=== PATIENT | male | born 1950 | race Caucasian/White ===

== ENCOUNTER 2022-04-10 14:43 | Inpatient (IN) | payer OTHER ==
[~2022-04-10] VITALS: Ht 175.3 cm; Wt 66.0 kg
[~2022-04-10 14:43] MED LIST: ACET-3207 PO; ALBU8HFA IH; AUD NEB; BENZ-70 PO; BISA10SU11 PR; DOCU-385 PO; GUAIF600 PO; HEPA500018 SQ; HYDR-4723 PO; IPRA3AMP23 NEB; IPRA4AER IH; MAGN-169 PO; PRED-554 PO
[2022-04-10] MEDS ORDERED: ALBUTEROL SULFATE 5 MG/ML 20 ML NEB SOLN [BULK] NEB ONE (14:45)
[2022-04-10] MEDS ORDERED: ACET-2247 PO (14:54)
[2022-04-10] MEDS ORDERED: MethylPREDNISolone SOD SUCC 125 MG/2 ML VIAL IVP ONE (15:00)
[2022-04-10] MEDS ORDERED: IPRATROPIUM BROMIDE 0.5 MG/2.5 ML NEB SOLUTION NEB ONE (15:00)
[2022-04-10] MEDS ORDERED: MAGNESIUM SULFATE 2 GM in DEXTROSE 5%-WATER 100 ML IV ONE (15:00)
[2022-04-10] MEDS ORDERED: 0.9% SODIUM CHLORIDE 15 ML NEB SOLUTION NEB ONE (15:03)
[2022-04-10 15:05] LABS: COVID AG,FIA SOURCE NASOPHARYNGEAL
[2022-04-10 15:06] LABS: BASOPHILS % (AUTO) 0.3 % (0.0-2.0); EOSINOPHILS % (AUTO) 3.5 % (1.0-6.0); HEMATOCRIT 45.9 % (41-53); HEMOGLOBIN 15.3 g/dL (13.5-17.5); LYMPHOCYTES # (AUTO) 2.2 K/uL (1.0-4.8); MEAN CORPUSCULAR HEMOGLOBIN 31.3 pg (26.0-34.0); MEAN CORPUSCULAR HGB CONC 33.3 G/dL (31.0-37.0); MEAN CORPUSCULAR VOLUME 94 fL (80-100); MONOCYTES # (AUTO) 1.1 K/uL (0.1-1.0); NEUTROPHILS # (AUTO) 8.6 K/uL (1.8-7.7); NEUTROPHILS % (AUTO) 69.2 % (40.0-70.0); PLATELET COUNT (AUTO) 193 K/uL (150-450); RED BLOOD CELL COUNT(AUTO) 4.89 MIL/uL (4.50-5.90); RED CELL DISTRIBUTION WIDTH 15.5 % (11.5-14.5)
[2022-04-10] MEDS ORDERED: SODIUM CHLORIDE 0.9% 1,000 ML IV ONE ×2 (15:15→17:15)
[2022-04-10] MEDS ORDERED: PIPERACILLIN/TAZO 3.375 GM/D5W 50 ML IV ONE (15:15)
[2022-04-10] MEDS ORDERED: ACETAMINOPHEN 1000 MG/ISO-OSM 100 ML IV ONE (15:15)
[2022-04-10] MEDS ORDERED: AZITHROMYCIN 500 MG/NS 250 ML IV ONE (15:15)
[2022-04-10] MEDS ORDERED: 0.9% SODIUM CHLORIDE 10 ML SYRINGE IVP PRN (15:15)
[2022-04-10] MEDS ORDERED: VANCOMYCIN HCL 1.25 GM in DEXTROSE 5%-WATER 250 ML IV ONE (15:15)
[2022-04-10 15:21] LABS: INR 1.2 (0.9-1.1); PROTHROMBIN TIME 12.2 SEC (9.4-11.6)
[2022-04-10 15:21] LABS: GLUCOSE,POINT OF CARE 105 MG/DL (70-110)
[2022-04-10 15:22] LABS: ANION GAP 10 mmol/L (8-16); CALCIUM, TOTAL 9.5 mg/dL (8.8-10.5); CARBON DIOXIDE 30 mmol/L (22-29); CHLORIDE 103 mmol/L (98-107); CREATININE 0.72 mg/dL (0.60-1.30); GLOMERULAR FILTR. RATE CALC > 60 mL/min (>60); GLUCOSE,RANDOM 112 mg/dL (70-110); POTASSIUM 3.9 mmol/L (3.5-5.1); SODIUM SERUM 143 mmol/L (136-145); UREA NITROGEN, BLOOD 11 mg/dL (7-18)
[2022-04-10 15:25] LABS: B-TYPE NATRIURETIC PEPTIDE 94 pg/mL (0-100)
[2022-04-10 15:49] LABS: INFLUENZA TYPE A NEGATIVE FOR TYPE A (NEGATIVE); INFLUENZA TYPE B NEGATIVE FOR TYPE B (NEGATIVE)
[2022-04-10 15:49] LABS: ALANINE AMINOTRANSFERASE 67 U/L (12-78); ALBUMIN 4.6 g/dL (3.4-5.0); ALKALINE PHOSPHATASE 135 U/L (46-116); ASPARTATE AMINOTRANSFERASE 55 U/L (15-37); BILIRUBIN,TOTAL 0.9 mg/dL (0.1-1.0); CREATINE KINASE, TOTAL ONLY 107 U/L (39-308); TOTAL PROTEIN, SERUM 8.5 g/dL (6.4-8.2)
[2022-04-10] MEDS ORDERED: SODIUM CHLORIDE 0.9% 800 ML IV ONE (16:00)
[2022-04-10 17:02] LABS: ABG BASE EXCESS -2.6 mmol/L (-2.0-3.0); ABG CARBOXYHEMOGLOBIN 2.4 % (0.0-1.5); ABG HCO3 22.2 mmol/L (22.0-26.0); ABG METHEMOGLOBIN 0.1 % (0.0-1.5); ABG OXYGEN CONTENT 18.2 mL/dL (15.0-23.0); ABG OXYGEN SATURATION 97.2 % (95.0-98.0); ABG OXYHEMOGLOBIN 94.8 % (94.0-100.0); ABG PCO2 46 mmHg (35-45); ABG PH 7.326 (7.35-7.450); ABG TOTAL HEMOGLOBIN 13.6 G/dL (12.0-18.0); PO2, ARTERIAL BG 99.1 mmHg (75.0-83.0); SITE, BLOOD GAS LFT BRACHIAL; SOURCE, BLOOD GAS ARTERIAL; TEMPERATURE, FAHRENHEIT, BG 98.5 FAHREN (96.0-98.6)
[2022-04-10 17:03] LABS: ABG A-A DIFF O2 97.3 mmHg (10-20.0); INSPIRATORY TIME, BG 0.9 SEC; O2 DEVICE,BLOOD GAS BIPAP (ROOM AIR); SPONTANEOUS VT, BG 508 ml
[2022-04-10] MEDS ORDERED: ACETAMINOPHEN 325 MG TABLET PO PRN (17:15)
[2022-04-10] MEDS ORDERED: BISACODYL 10 MG RECTAL RECTAL SUPPOSITORY PR PRN (17:15)
[2022-04-10 18:53] VITALS: BP 107/64
[2022-04-10] MEDS: PANTOPRAZOLE SODIUM 40 MG/VIAL IVP SCH (20:30)
[2022-04-10] MEDS: MethylPREDNISolone SOD SUCC 125 MG/2 ML VIAL IVP SCH ×2 (20:30→23:35)
[2022-04-10] MEDS: PIPERACILLIN/TAZO 3.375 GM/D5W 50 ML IV SCH (21:59)
[2022-04-10] MEDS: HEPARIN SODIUM,PORCINE 5,000 UNITS/ML VIAL SQ SCH (23:35)
[2022-04-10 23:53] VITALS: BP 122/68
[2022-04-11] MEDS: PIPERACILLIN/TAZO 3.375 GM/D5W 50 ML IV SCH ×4 (03:47→23:11)
[2022-04-11 04:35] VITALS: BP 105/59
[2022-04-11] MEDS: MethylPREDNISolone SOD SUCC 125 MG/2 ML VIAL IVP SCH ×4 (05:56→23:11)
[2022-04-11] MEDS: VANCOMYCIN 1GM/WATER(PEG/NADA) 200 ML IV SCH ×2 (05:57→18:42)
[2022-04-11 07:15] VITALS: BP 112/66
[2022-04-11 07:16] LABS: APPEARANCE,URINE CLEAR (CLEAR); BILIRUBIN,URINE NEGATIVE (NEGATIVE); GLUCOSE, URINE (UA) 300-500 mg/dL (NEGATIVE); KETONES,URINE NEGATIVE (NEGATIVE); LEUKOCYTE ESTERASE ,URINE NEGATIVE (NEGATIVE); NITRATE,URINE NEGATIVE (NEGATIVE); OCCULT BLOOD,URINE NEGATIVE (NEGATIVE); PH,URINE 5.5 (5.0-8.0); PROTEIN,URINE NEGATIVE (NEGATIVE); SPECIFIC GRAVITIY, URINE 1.015 (1.003-1.030); UROBILINOGEN,URINE <=1.0 mg/dL (<=1.0)
[2022-04-11 07:49] LABS: BACTERIA,URINE None Seen /HPF (None Seen); RBC,URINE None Seen /HPF (0-2); SQUAMOUS EPITHELIAL CELL,UR None Seen /LPF (None Seen); WBC,URINE None Seen /HPF (0-5)
[2022-04-11 07:49] LABS: ANION GAP 11 mmol/L (8-16); CALCIUM, TOTAL 8.8 mg/dL (8.8-10.5); CARBON DIOXIDE 26 mmol/L (22-29); CHLORIDE 106 mmol/L (98-107); CREATININE 0.77 mg/dL (0.60-1.30); GLUCOSE,RANDOM 153 mg/dL (70-110); POTASSIUM 4.2 mmol/L (3.5-5.1); SODIUM SERUM 143 mmol/L (136-145); UREA NITROGEN, BLOOD 14 mg/dL (7-18)
[2022-04-11 08:00] LABS: GLOMERULAR FILTR. RATE CALC > 60 mL/min (>60)
[2022-04-11] MEDS: PANTOPRAZOLE SODIUM 40 MG/VIAL IVP SCH (08:39)
[2022-04-11] MEDS: HEPARIN SODIUM,PORCINE 5,000 UNITS/ML VIAL SQ SCH ×3 (08:39→23:10)
[2022-04-11 10:56] VITALS: BP 112/67
[2022-04-11] MEDS: ALBUTEROL SULFATE 2.5 MG/0.5 ML NEB SOLUTION NEB PRN ×2 (13:23→20:43)
[2022-04-11] MEDS: IPRATROPIUM BROMIDE 0.5 MG/2.5 ML NEB SOLUTION NEB PRN ×2 (13:23→20:43)
[2022-04-11 16:26] VITALS: BP 121/71
[2022-04-11 20:33] VITALS: BP 116/71
[2022-04-12 00:18] VITALS: BP 133/85
[2022-04-12] MEDS ORDERED: SODIUM CHLORIDE 0.9% 500 ML IV ONE (05:26)
[2022-04-12 05:46] VITALS: BP 125/62
[2022-04-12] MEDS: MethylPREDNISolone SOD SUCC 125 MG/2 ML VIAL IVP SCH (05:48)
[2022-04-12] MEDS: PIPERACILLIN/TAZO 3.375 GM/D5W 50 ML IV SCH ×2 (05:49→10:13)
[2022-04-12] MEDS: VANCOMYCIN 1GM/WATER(PEG/NADA) 200 ML IV SCH (06:12)
[2022-04-12 07:20] LABS: ANION GAP 9 mmol/L (8-16); CARBON DIOXIDE 28 mmol/L (22-29); CHLORIDE 103 mmol/L (98-107); CREATININE 0.73 mg/dL (0.60-1.30); GLUCOSE,RANDOM 153 mg/dL (70-110); PHOSPHORUS 2.8 mg/dL (2.5-4.9); POTASSIUM 4.3 mmol/L (3.5-5.1); SODIUM SERUM 140 mmol/L (136-145); UREA NITROGEN, BLOOD 21 mg/dL (7-18)
[2022-04-12 07:21] VITALS: BP 130/66
[2022-04-12 07:57] LABS: GLOMERULAR FILTR. RATE CALC > 60 mL/min (>60)
[2022-04-12] MEDS: HEPARIN SODIUM,PORCINE 5,000 UNITS/ML VIAL SQ SCH ×2 (07:59→15:28)
[2022-04-12] MEDS: PANTOPRAZOLE SODIUM 40 MG/VIAL IVP SCH (07:59)
[2022-04-12] MEDS ORDERED: 0.9% SODIUM CHLORIDE 5 ML NEB SOLUTION NEB ONE (08:18)
[2022-04-12] MEDS: ALBUTEROL SULFATE 2.5 MG/0.5 ML NEB SOLUTION NEB PRN ×2 (08:23→13:27)
[2022-04-12] MEDS: IPRATROPIUM BROMIDE 0.5 MG/2.5 ML NEB SOLUTION NEB PRN ×2 (08:23→13:27)
[2022-04-12] MEDS ORDERED: FOLIC ACID 1 MG TABLET PO SCH (09:00)
[2022-04-12] MEDS ORDERED: THIAMINE 100 MG TABLET PO SCH (09:00)
[2022-04-12 11:39] VITALS: BP 106/55
[2022-04-12] MEDS ORDERED: AUD NEB (11:56)
[2022-04-12] MEDS ORDERED: PRED-554 PO (11:57)
[2022-04-12] MEDS ORDERED: ALBU8HFA IH (11:58)
[2022-04-12] MEDS ORDERED: LEVO-72 PO (11:58)
[2022-04-12 12:00] LABS: BASOPHILS % (AUTO) 0.1 % (0.0-2.0); EOSINOPHILS % (AUTO) 0 % (1.0-6.0); HEMATOCRIT 38.7 % (41-53); LYMPHOCYTES # (AUTO) 0.5 K/uL (1.0-4.8); LYMPHOCYTES % (AUTO) 3.7 % (22.0-44.0); MEAN CORPUSCULAR HEMOGLOBIN 31.4 pg (26.0-34.0); MEAN CORPUSCULAR HGB CONC 33.6 G/dL (31.0-37.0); MEAN CORPUSCULAR VOLUME 93 fL (80-100); MONOCYTES # (AUTO) 0.4 K/uL (0.1-1.0); MONOCYTES % (AUTO) 2.7 % (2.0-9.0); NEUTROPHILS # (AUTO) 13.3 K/uL (1.8-7.7); NEUTROPHILS % (AUTO) 93.5 % (40.0-70.0); PLATELET COUNT (AUTO) 140 K/uL (150-450); RED BLOOD CELL COUNT(AUTO) 4.15 MIL/uL (4.50-5.90)
[2022-04-12] MEDS ORDERED: PredniSONE 10 MG TABLET PO SCH (12:15)
[2022-04-12] MEDS ORDERED: MONT-35 PO (12:27)
[2022-04-12] MEDS ORDERED: ALBUTEROL SULFATE HFA 90 MCG/PUFF 8 GM INHALER IH ONE (13:45)
[2022-04-12 14:49] VITALS: BP 119/62
[2022-04-13] MEDS ORDERED: LEVOFLOXACIN 500 MG TABLET PO SCH (09:00)
== END 2022-04-12 17:35 | disposition home or self-care (01) | DRG 871 ==
LOC: EMS 14:48 → 5N 17:15
PROVIDERS: ADMIT Internal Medicine; ATTEND Internal Medicine
DX: A41.9 Sepsis, unspecified organism (principal); E43 Unspecified severe protein-calorie malnutrition; G93.41 Metabolic encephalopathy; J18.9 Pneumonia, unspecified organism; J96.21 Acute and chronic respiratory failure with hypoxia; J44.1 Chronic obstructive pulmonary disease with (acute) exacerbation; E87.2 Acidosis; J44.0 Chronic obstructive pulmonary disease with (acute) lower respiratory infection; R64 Cachexia; F10.10 Alcohol abuse, uncomplicated; F17.210 Nicotine dependence, cigarettes, uncomplicated; J98.4 Other disorders of lung; Z20.822 Contact with and (suspected) exposure to COVID-19; Z91.19 Patient's noncompliance with other medical treatment and regimen; Z79.899 Other long term (current) drug therapy
CPT/HCPCS: 71045; 80048; 80053; 81001; 82550; 82805; 82962; 83605; 83735; 83880; 84100; 84145; 84484; 85025; 85610; 85730; 87040; 87804; 93005; 94640; 94644; 94660; 99291; C9113; J0131; J0456; J1644; J2543; J2930; J3370; J3475; J3535; J7030; J7040; J7060; Q9967; 36415-L1; 36415-TC; J7512; J7611; J7613; Z7610

== ENCOUNTER 2022-11-02 16:42 | Inpatient (IN) | payer OTHER ==
[~2022-11-02] VITALS: Ht 180.3 cm; Wt 65.8 kg
[~2022-11-02 16:42] MED LIST changes: +ACET-2247 PO; -ACET-3207 PO; +BENZ-227 PO; -BENZ-70 PO; -BISA10SU11 PR; -DOCU-385 PO; -GUAIF600 PO; -HEPA500018 SQ; -HYDR-4723 PO; -IPRA3AMP23 NEB; +LEVO-72 PO; -MAGN-169 PO; +MONT-35 PO
[2022-11-02] MEDS ORDERED: CefTRIAXone 1 GM/DEXTROSE 50 ML IV ONE (18:00)
[2022-11-02] MEDS ORDERED: IPRATROPIUM BROMIDE 0.5 MG/2.5 ML NEB SOLUTION NEB ONE ×2 (18:00→19:30)
[2022-11-02] MEDS ORDERED: ALBUTEROL SULFATE 2.5 MG/0.5 ML NEB SOLUTION NEB ONE ×2 (18:00→19:30)
[2022-11-02] MEDS ORDERED: MethylPREDNISolone SOD SUCC 125 MG/2 ML VIAL IVP ONE (18:00)
[2022-11-02] MEDS ORDERED: AZITHROMYCIN 500 MG/NS 250 ML IV ONE (18:00)
[2022-11-02 18:43] LABS: COVID AG,FIA SOURCE NASOPHARYNGEAL
[2022-11-02 18:53] LABS: BASOPHILS % (AUTO) 0.4 % (0.0-2.0); EOSINOPHILS % (AUTO) 3.1 % (1.0-6.0); HEMATOCRIT 44.4 % (41-53); LYMPHOCYTES # (AUTO) 1.5 K/uL (1.0-4.8); LYMPHOCYTES % (AUTO) 19.9 % (22.0-44.0); MEAN CORPUSCULAR HEMOGLOBIN 31.8 pg (26.0-34.0); MEAN CORPUSCULAR HGB CONC 33.9 G/dL (31.0-37.0); MEAN CORPUSCULAR VOLUME 94 fL (80-100); MONOCYTES # (AUTO) 0.9 K/uL (0.1-1.0); MONOCYTES % (AUTO) 12.7 % (2.0-9.0); NEUTROPHILS # (AUTO) 4.7 K/uL (1.8-7.7); NEUTROPHILS % (AUTO) 63.9 % (40.0-70.0); PLATELET COUNT (AUTO) 208 K/uL (150-450); RED BLOOD CELL COUNT(AUTO) 4.73 MIL/uL (4.50-5.90); RED CELL DISTRIBUTION WIDTH 14.6 % (11.5-14.5)
[2022-11-02 19:04] LABS: INFLUENZA TYPE A NEGATIVE FOR TYPE A (NEGATIVE); INFLUENZA TYPE B NEGATIVE FOR TYPE B (NEGATIVE); LACTIC ACID 0.8 mmol/L (0.4-2.0)
[2022-11-02] MEDS: OXYGEN THERAPY IH SCH (19:04)
[2022-11-02 19:09] LABS: ANION GAP 7 mmol/L (8-16); CALCIUM, TOTAL 8.9 mg/dL (8.8-10.5); CARBON DIOXIDE 32 mmol/L (22-29); CHLORIDE 103 mmol/L (98-107); CREATININE 0.93 mg/dL (0.60-1.30); GLOMERULAR FILTR. RATE CALC > 60 mL/min (>60); GLUCOSE,RANDOM 106 mg/dL (70-110); SODIUM SERUM 142 mmol/L (136-145); UREA NITROGEN, BLOOD 12 mg/dL (7-18)
[2022-11-02 19:13] LABS: ALANINE AMINOTRANSFERASE 64 U/L (12-78); ALKALINE PHOSPHATASE 135 U/L (46-116); ASPARTATE AMINOTRANSFERASE 83 U/L (15-37); BILIRUBIN,TOTAL 0.6 mg/dL (0.1-1.0); LIPASE 141 U/L (73-393); TOTAL PROTEIN, SERUM 7.7 g/dL (6.4-8.2)
[2022-11-02 19:14] LABS: B-TYPE NATRIURETIC PEPTIDE 40 pg/mL (0-100)
[2022-11-02] MEDS ORDERED: ACETAMINOPHEN 325 MG TABLET PO PRN (20:15)
[2022-11-02 22:10] VITALS: BP 111/68
[2022-11-02] MEDS: HEPARIN SODIUM,PORCINE 5,000 UNITS/ML VIAL SQ SCH (22:18)
[2022-11-02] MEDS: DOCUSATE SODIUM 100 MG CAPSULE PO SCH (22:18)
[2022-11-03 04:07] VITALS: BP 125/81
[2022-11-03] MEDS: DOCUSATE SODIUM 100 MG CAPSULE PO SCH ×2 (08:46→20:09)
[2022-11-03] MEDS: HEPARIN SODIUM,PORCINE 5,000 UNITS/ML VIAL SQ SCH ×2 (08:46→15:50)
[2022-11-03] MEDS: FAMOTIDINE 20 MG TABLET PO SCH (08:46)
[2022-11-03 09:33] VITALS: BP 110/72
[2022-11-03] MEDS: OXYGEN THERAPY IH SCH (09:38)
[2022-11-03] MEDS: ALBUTEROL SULFATE 2.5 MG/0.5 ML NEB SOLUTION NEB PRN ×3 (10:21→19:32)
[2022-11-03] MEDS ORDERED: MethylPREDNISolone SOD SUCC 125 MG/2 ML VIAL IVP SCH (14:45)
[2022-11-03] MEDS ORDERED: SODIUM CHLORIDE 0.9% 500 ML IV ONE (15:02)
[2022-11-03] MEDS: CefTRIAXone 1 GM/DEXTROSE 50 ML IV SCH (15:16)
[2022-11-03] MEDS: MethylPREDNISolone SOD SUCC 125 MG/2 ML VIAL IVP SCH ×2 (15:16→20:09)
[2022-11-03 16:14] VITALS: BP 136/91
[2022-11-03] MEDS ORDERED: 0.9% SODIUM CHLORIDE 5 ML NEB SOLUTION NEB ONE (19:27)
[2022-11-03 20:50] VITALS: BP 124/72
[2022-11-04] MEDS: MethylPREDNISolone SOD SUCC 125 MG/2 ML VIAL IVP SCH ×2 (00:37→05:43)
[2022-11-04] MEDS: HEPARIN SODIUM,PORCINE 5,000 UNITS/ML VIAL SQ SCH ×4 (00:38→22:46)
[2022-11-04 04:17] VITALS: BP 118/76
[2022-11-04] MEDS ORDERED: 0.9% SODIUM CHLORIDE 5 ML NEB SOLUTION NEB ONE ×2 (04:53→20:02)
[2022-11-04] MEDS: ALBUTEROL SULFATE 2.5 MG/0.5 ML NEB SOLUTION NEB PRN ×2 (04:58→20:34)
[2022-11-04] MEDS ORDERED: MethylPREDNISolone SOD SUCC 125 MG/2 ML VIAL IVP SCH (06:00)
[2022-11-04] MEDS: FAMOTIDINE 20 MG TABLET PO SCH (07:48)
[2022-11-04] MEDS: DOCUSATE SODIUM 100 MG CAPSULE PO SCH ×2 (07:48→22:45)
[2022-11-04 07:53] VITALS: BP 120/72
[2022-11-04 15:14] VITALS: BP 138/83
[2022-11-04] MEDS: CefTRIAXone 1 GM/DEXTROSE 50 ML IV SCH (17:18)
[2022-11-04 22:17] VITALS: BP 139/76
[2022-11-04] MEDS: POLYETHYLENE GLYCOL 3350 17 GM PACKET PO SCH (22:45)
[2022-11-05 06:58] VITALS: BP_SYST 75
[2022-11-05] MEDS: HEPARIN SODIUM,PORCINE 5,000 UNITS/ML VIAL SQ SCH ×3 (08:00→23:38)
[2022-11-05] MEDS: POLYETHYLENE GLYCOL 3350 17 GM PACKET PO SCH ×2 (09:00→20:48)
[2022-11-05] MEDS: DOCUSATE SODIUM 100 MG CAPSULE PO SCH ×2 (09:00→20:48)
[2022-11-05] MEDS: FAMOTIDINE 20 MG TABLET PO SCH (09:00)
[2022-11-05 10:42] VITALS: BP 119/58
[2022-11-05] MEDS: CefTRIAXone 1 GM/DEXTROSE 50 ML IV SCH (17:00)
[2022-11-05 17:20] VITALS: BP 130/76
[2022-11-05 20:20] VITALS: BP 110/75
[2022-11-06 04:46] VITALS: BP 111/69
[2022-11-06] MEDS: POLYETHYLENE GLYCOL 3350 17 GM PACKET PO SCH ×2 (07:52→20:29)
[2022-11-06] MEDS: FAMOTIDINE 20 MG TABLET PO SCH (07:52)
[2022-11-06] MEDS: DOCUSATE SODIUM 100 MG CAPSULE PO SCH ×2 (07:52→20:29)
[2022-11-06] MEDS: HEPARIN SODIUM,PORCINE 5,000 UNITS/ML VIAL SQ SCH ×3 (07:52→23:49)
[2022-11-06 08:45] VITALS: BP 144/82
[2022-11-06] MEDS: ALBUTEROL SULFATE 2.5 MG/0.5 ML NEB SOLUTION NEB PRN (13:43)
[2022-11-06 16:04] VITALS: BP 119/89
[2022-11-06] MEDS: CefTRIAXone 1 GM/DEXTROSE 50 ML IV SCH (16:31)
[2022-11-06 20:15] VITALS: BP 136/86
[2022-11-07 04:27] VITALS: BP 132/82
[2022-11-07 07:51] VITALS: BP 134/84
[2022-11-07] MEDS: HEPARIN SODIUM,PORCINE 5,000 UNITS/ML VIAL SQ SCH ×2 (08:00→16:00)
[2022-11-07] MEDS: FAMOTIDINE 20 MG TABLET PO SCH (08:20)
[2022-11-07] MEDS: DOCUSATE SODIUM 100 MG CAPSULE PO SCH (08:21)
[2022-11-07] MEDS: POLYETHYLENE GLYCOL 3350 17 GM PACKET PO SCH (08:22)
[2022-11-07] MEDS: ALBUTEROL SULFATE 2.5 MG/0.5 ML NEB SOLUTION NEB PRN (10:43)
[2022-11-07 15:30] VITALS: BP 115/76
[2022-11-07] MEDS: CefTRIAXone 1 GM/DEXTROSE 50 ML IV SCH (17:00)
== END 2022-11-07 18:00 | disposition home or self-care (01) | DRG 189 ==
LOC: EMS 16:55 → UNDOADMIN 20:00 → 6S 20:00 → 5S 20:00
PROVIDERS: ADMIT Internal Medicine; ATTEND Internal Medicine
DX: J96.21 Acute and chronic respiratory failure with hypoxia (principal); J44.1 Chronic obstructive pulmonary disease with (acute) exacerbation; R64 Cachexia; Z20.822 Contact with and (suspected) exposure to COVID-19; Z60.2 Problems related to living alone; J98.4 Other disorders of lung; F43.10 Post-traumatic stress disorder, unspecified; F17.210 Nicotine dependence, cigarettes, uncomplicated; Z91.199 Patient's noncompliance with other medical treatment and regimen due to unspecified reason; Z99.81 Dependence on supplemental oxygen; Z79.899 Other long term (current) drug therapy; Z68.20 Body mass index [BMI] 20.0-20.9, adult; Z59.00 Homelessness unspecified; Z91.018 Allergy to other foods
CPT/HCPCS: 71045; 80053; 83605; 83690; 83880; 84484; 85025; 87040; 87081; 87804; 93005; 94640; 94644; 99285; J0456; J0696; J1644; J2930; J7040; J7613

== ENCOUNTER 2022-11-28 19:38 | Inpatient (IN) | payer OTHER ==
[~2022-11-28] VITALS: Ht 180.3 cm; Wt 65.0 kg
[~2022-11-28 19:38] MED LIST changes: -LEVO-72 PO; -MONT-35 PO; -PRED-554 PO
[2022-11-28 20:00] LABS: COVID AG,FIA SOURCE NASAL SWAB
[2022-11-28 20:27] LABS: INFLUENZA TYPE A NEGATIVE FOR TYPE A (NEGATIVE); INFLUENZA TYPE B NEGATIVE FOR TYPE B (NEGATIVE)
[2022-11-28] MEDS ORDERED: ALBUTEROL SULFATE 2.5 MG/0.5 ML NEB SOLUTION NEB ONE (21:00)
[2022-11-28] MEDS ORDERED: IPRATROPIUM BROMIDE 0.5 MG/2.5 ML NEB SOLUTION NEB ONE (21:00)
[2022-11-28] MEDS ORDERED: MethylPREDNISolone SOD SUCC 125 MG/2 ML VIAL IVP ONE (21:00)
[2022-11-28] MEDS ORDERED: AZITHROMYCIN 500 MG/NS 250 ML IV ONE (21:00)
[2022-11-28] MEDS: OXYGEN THERAPY IH SCH (21:30)
[2022-11-28 21:40] LABS: BASOPHILS % (AUTO) 0.2 % (0.0-2.0); EOSINOPHILS % (AUTO) 0.6 % (1.0-6.0); HEMATOCRIT 45.6 % (41-53); HEMOGLOBIN 15.2 g/dL (13.5-17.5); LYMPHOCYTES % (AUTO) 9.5 % (22.0-44.0); MEAN CORPUSCULAR HEMOGLOBIN 31.4 pg (26.0-34.0); MEAN CORPUSCULAR HGB CONC 33.3 G/dL (31.0-37.0); MEAN CORPUSCULAR VOLUME 94 fL (80-100); MONOCYTES # (AUTO) 1.5 K/uL (0.1-1.0); MONOCYTES % (AUTO) 13.6 % (2.0-9.0); NEUTROPHILS # (AUTO) 8.2 K/uL (1.8-7.7); NEUTROPHILS % (AUTO) 76.1 % (40.0-70.0); PLATELET COUNT (AUTO) 412 K/uL (150-450); RED BLOOD CELL COUNT(AUTO) 4.84 MIL/uL (4.50-5.90); RED CELL DISTRIBUTION WIDTH 13.6 % (11.5-14.5)
[2022-11-28 21:53] LABS: ANION GAP 10 mmol/L (8-16); CALCIUM, TOTAL 9.2 mg/dL (8.8-10.5); CARBON DIOXIDE 31 mmol/L (22-29); CHLORIDE 102 mmol/L (98-107); CREATININE 0.92 mg/dL (0.60-1.30); GLOMERULAR FILTR. RATE CALC > 60 mL/min (>60); GLUCOSE,RANDOM 166 mg/dL (70-110); POTASSIUM 4.2 mmol/L (3.5-5.1); SODIUM SERUM 143 mmol/L (136-145); UREA NITROGEN, BLOOD 20 mg/dL (7-18)
[2022-11-28 21:56] LABS: ALANINE AMINOTRANSFERASE 52 U/L (12-78); ALBUMIN 3.4 g/dL (3.4-5.0); ALKALINE PHOSPHATASE 182 U/L (46-116); ASPARTATE AMINOTRANSFERASE 62 U/L (15-37); BILIRUBIN,TOTAL 0.9 mg/dL (0.1-1.0); TOTAL PROTEIN, SERUM 7.6 g/dL (6.4-8.2)
[2022-11-28] MEDS ORDERED: MAGNESIUM HYDROXIDE SUSPENSION 30 ML UDCUP PO PRN (22:00)
[2022-11-28] MEDS ORDERED: ONDANSETRON HCL 4 MG/2 ML VIAL IVP PRN (22:00)
[2022-11-28] MEDS ORDERED: ACETAMINOPHEN 325 MG TABLET PO PRN (22:00)
[2022-11-28 22:11] LABS: B-TYPE NATRIURETIC PEPTIDE 71 pg/mL (0-100)
[2022-11-28 23:03] VITALS: BP 121/78
[2022-11-28] MEDS: HEPARIN SODIUM,PORCINE 5,000 UNITS/ML VIAL SQ SCH (23:15)
[2022-11-29 05:01] VITALS: BP 124/70
[2022-11-29 07:42] VITALS: BP 113/62
[2022-11-29] MEDS: OXYGEN THERAPY IH SCH ×2 (08:44→20:54)
[2022-11-29] MEDS: FAMOTIDINE 20 MG TABLET PO SCH (08:45)
[2022-11-29] MEDS: HEPARIN SODIUM,PORCINE 5,000 UNITS/ML VIAL SQ SCH ×3 (08:45→23:12)
[2022-11-29 09:59] LABS: APPEARANCE,URINE CLEAR (CLEAR); GLUCOSE, URINE (UA) 70-100 mg/dL (NEGATIVE); KETONES,URINE TRACE mg/dL (NEGATIVE); LEUKOCYTE ESTERASE ,URINE NEGATIVE (NEGATIVE); NITRATE,URINE NEGATIVE (NEGATIVE); OCCULT BLOOD,URINE NEGATIVE (NEGATIVE); PROTEIN,URINE 30-70 mg/dL (NEGATIVE); SPECIFIC GRAVITIY, URINE 1.037 (1.003-1.030)
[2022-11-29 10:00] LABS: BILIRUBIN,URINE SMALL (NEGATIVE)
[2022-11-29 10:15] LABS: BACTERIA,URINE None Seen /HPF (None Seen); RBC,URINE None Seen /HPF (0-2); SQUAMOUS EPITHELIAL CELL,UR Few /LPF (None Seen); WBC,URINE None Seen /HPF (0-5)
[2022-11-29 15:22] VITALS: BP 120/85
[2022-11-29] MEDS: MethylPREDNISolone SOD SUCC 40 MG/ML VIAL IVP SCH ×2 (16:26→23:12)
[2022-11-29] MEDS: BENZONATATE 100 MG CAPSULE PO SCH ×2 (16:26→20:51)
[2022-11-29] MEDS: ALBUTEROL SULFATE 2.5 MG/0.5 ML NEB SOLUTION NEB PRN ×2 (19:22→23:22)
[2022-11-29] MEDS: IPRATROPIUM BROMIDE 0.5 MG/2.5 ML NEB SOLUTION NEB PRN ×2 (19:22→23:22)
[2022-11-29 20:00] VITALS: BP 114/72
[2022-11-30 04:20] VITALS: BP 164/74
[2022-11-30] MEDS: MethylPREDNISolone SOD SUCC 40 MG/ML VIAL IVP SCH (08:09)
[2022-11-30] MEDS: FAMOTIDINE 20 MG TABLET PO SCH (08:22)
[2022-11-30] MEDS: BENZONATATE 100 MG CAPSULE PO SCH ×3 (08:22→19:49)
[2022-11-30] MEDS: HEPARIN SODIUM,PORCINE 5,000 UNITS/ML VIAL SQ SCH ×3 (08:27→23:06)
[2022-11-30 09:20] VITALS: BP 138/82
[2022-11-30] MEDS: OXYGEN THERAPY IH SCH ×2 (09:23→19:52)
[2022-11-30 15:40] VITALS: BP 136/91
[2022-11-30] MEDS: ALBUTEROL SULFATE 2.5 MG/0.5 ML NEB SOLUTION NEB PRN (19:28)
[2022-11-30] MEDS: IPRATROPIUM BROMIDE 0.5 MG/2.5 ML NEB SOLUTION NEB PRN (19:28)
[2022-11-30 19:48] VITALS: BP 136/82
[2022-12-01 03:01] VITALS: BP 131/78
[2022-12-01] MEDS: IPRATROPIUM BROMIDE 0.5 MG/2.5 ML NEB SOLUTION NEB PRN (03:48)
[2022-12-01] MEDS: ALBUTEROL SULFATE 2.5 MG/0.5 ML NEB SOLUTION NEB PRN (03:48)
[2022-12-01 08:23] VITALS: BP 129/71
[2022-12-01] MEDS: FAMOTIDINE 20 MG TABLET PO SCH (09:10)
[2022-12-01] MEDS: HEPARIN SODIUM,PORCINE 5,000 UNITS/ML VIAL SQ SCH ×2 (09:11→16:00)
[2022-12-01] MEDS: BENZONATATE 100 MG CAPSULE PO SCH ×2 (09:12→16:00)
[2022-12-01] MEDS: OXYGEN THERAPY IH SCH (09:15)
[2022-12-01] MEDS ORDERED: ETHY1MED2 NASAL (14:06)
[2022-12-01 16:07] VITALS: BP 126/77
== END 2022-12-01 16:56 | disposition home or self-care (01) | DRG 190 ==
LOC: EMS 19:40 → 6S 22:34
PROVIDERS: ADMIT Internal Medicine; ATTEND Internal Medicine
DX: J44.1 Chronic obstructive pulmonary disease with (acute) exacerbation (principal); J96.21 Acute and chronic respiratory failure with hypoxia; E44.0 Moderate protein-calorie malnutrition; J98.4 Other disorders of lung; Z20.822 Contact with and (suspected) exposure to COVID-19; F17.200 Nicotine dependence, unspecified, uncomplicated; M10.9 Gout, unspecified; F43.10 Post-traumatic stress disorder, unspecified; R73.9 Hyperglycemia, unspecified; Z59.00 Homelessness unspecified; Z99.81 Dependence on supplemental oxygen; Z68.20 Body mass index [BMI] 20.0-20.9, adult; Z79.899 Other long term (current) drug therapy; Z91.018 Allergy to other foods
CPT/HCPCS: 71045; 80053; 81001; 83880; 84484; 85025; 87040; 87081; 87804; 93005; 94640; 97116; 97163; 97530; 99285; J0456; J1644; J2920; J2930; 36415-L1; 36415-TC; J7613

== ENCOUNTER 2023-04-03 20:32 | Inpatient (IN) | payer OTHER ==
[~2023-04-03] VITALS: Ht 180.3 cm; Wt 69.1 kg
[~2023-04-03 20:32] MED LIST changes: -ACET-2247 PO; +ALBU18HF12 IH; -ALBU8HFA IH; -AUD NEB; +AZIT-103 PO; +FLUT1BLS10 IH; -IPRA4AER IH; +PRED-554 PO
[2023-04-03] MEDS ORDERED: ALBUTEROL SULFATE 2.5 MG/0.5 ML NEB SOLUTION NEB ONE (22:30)
[2023-04-03] MEDS ORDERED: MethylPREDNISolone SOD SUCC 125 MG/2 ML VIAL IVP ONE (22:30)
[2023-04-03] MEDS ORDERED: IPRATROPIUM BROMIDE 0.5 MG/2.5 ML NEB SOLUTION NEB ONE (22:30)
[2023-04-03 22:33] LABS: BASOPHILS % (AUTO) 0.7 % (0.0-2.0); EOSINOPHILS % (AUTO) 5.6 % (1.0-6.0); HEMATOCRIT 45.4 % (41-53); HEMOGLOBIN 14.9 g/dL (13.5-17.5); LYMPHOCYTES # (AUTO) 2.1 K/uL (1.0-4.8); LYMPHOCYTES % (AUTO) 29.5 % (22.0-44.0); MEAN CORPUSCULAR HEMOGLOBIN 30.1 pg (26.0-34.0); MEAN CORPUSCULAR HGB CONC 32.8 G/dL (31.0-37.0); MEAN CORPUSCULAR VOLUME 92 fL (80-100); MONOCYTES # (AUTO) 0.8 K/uL (0.1-1.0); MONOCYTES % (AUTO) 11.5 % (2.0-9.0); NEUTROPHILS # (AUTO) 3.8 K/uL (1.8-7.7); NEUTROPHILS % (AUTO) 52.7 % (40.0-70.0); PLATELET COUNT (AUTO) 204 K/uL (150-450); RED BLOOD CELL COUNT(AUTO) 4.96 MIL/uL (4.50-5.90); RED CELL DISTRIBUTION WIDTH 14.1 % (11.5-14.5)
[2023-04-03 22:46] LABS: ANION GAP 15 mmol/L (8-16); CARBON DIOXIDE 27 mmol/L (22-29); CHLORIDE 98 mmol/L (98-107); CREATININE 0.96 mg/dL (0.60-1.30); GLOMERULAR FILTR. RATE CALC > 60 mL/min (>60); GLUCOSE,RANDOM 125 mg/dL (70-110); POTASSIUM 3.3 mmol/L (3.5-5.1); SODIUM SERUM 140 mmol/L (136-145)
[2023-04-03 22:50] VITALS: PULSE 77; RESP 20; O2SAT 89
[2023-04-03 22:52] LABS: ALANINE AMINOTRANSFERASE 54 U/L (12-78); ALBUMIN 3.8 g/dL (3.4-5.0); ALKALINE PHOSPHATASE 121 U/L (46-116); ASPARTATE AMINOTRANSFERASE 63 U/L (15-37); BILIRUBIN,TOTAL 0.4 mg/dL (0.1-1.0); TOTAL PROTEIN, SERUM 7.3 g/dL (6.4-8.2)
[2023-04-03 23:05] VITALS: PULSE 74; RESP 18; O2SAT 96
[2023-04-03 23:35] LABS: B-TYPE NATRIURETIC PEPTIDE 31 pg/mL (0-100)
[2023-04-04] VITALS (11 sets, daily range): BP systolic 121–134; BP diastolic 74–91; PULSE 57–92; RESP 18–20; TEMP 97.5–98.8; O2SAT 90–99
[2023-04-04 00:02] LABS: COVID AG,FIA SOURCE NASOPHARYNGEAL
[2023-04-04] MEDS ORDERED: LORazepam 2 MG TABLET PO PRN (04:00)
[2023-04-04] MEDS ORDERED: ZOLPIDEM TARTRATE 10 MG TABLET PO PRN (04:00)
[2023-04-04] MEDS ORDERED: OLANZapine 5 MG RAPDIS TABLET PO PRN (04:00)
[2023-04-04] MEDS ORDERED: ALBUTEROL SULFATE 2.5 MG/0.5 ML NEB SOLUTION NEB PRN (06:45)
[2023-04-04] MEDS ORDERED: IPRATROPIUM BROMIDE 0.5 MG/2.5 ML NEB SOLUTION NEB PRN (06:45)
[2023-04-04] MEDS ORDERED: MAG HYDROX/AL HYDROX/SIMETH ES 30 ML SUSPENSION UDCUP PO PRN (08:30)
[2023-04-04] MEDS ORDERED: GuaiFENesin/D-METHORPHAN [SUGAR-FREE] 200-20MG/10 ML SYRUP UDCUP PO PRN (08:30)
[2023-04-04] MEDS ORDERED: TUBERCULIN, PURIFIED PROTEIN DERIVATIVE 5 TU/0.1 ML SYRINGE ID ONE (08:30)
[2023-04-04] MEDS ORDERED: ACETAMINOPHEN 325 MG TABLET PO PRN (08:30)
[2023-04-04] MEDS ORDERED: LOPERAMIDE HCL 2 MG CAPSULE PO PRN (08:30)
[2023-04-04] MEDS ORDERED: PROMETHAZINE HCL 25 MG TABLET PO PRN (08:30)
[2023-04-04] MEDS ORDERED: MAGNESIUM HYDROXIDE SUSPENSION 30 ML UDCUP PO PRN (08:30)
[2023-04-04] MEDS ORDERED: HydrOXYzine PAMOATE 50 MG CAPSULE PO PRN (08:30)
[2023-04-04] MEDS: THIAMINE 100 MG TABLET PO SCH ×2 (11:06→17:39)
[2023-04-04] MEDS: MULTIVITAMINS WITH MINERALS, THERAPEUTIC TABLET PO SCH (11:06)
[2023-04-04] MEDS: NALTREXONE HCL 50 MG TABLET PO SCH (11:06)
[2023-04-04] MEDS: OMEGA-3/DHA/EPA/FISH OIL 1,000 MG CAPSULE PO SCH (11:07)
[2023-04-04] MEDS: FOLIC ACID 1 MG TABLET PO SCH (11:07)
[2023-04-04] MEDS: FLUoxetine HCL 20 MG CAPSULE PO SCH (11:07)
[2023-04-04] MEDS ORDERED: POTASSIUM CHLORIDE 20 MEQ ER TABLET PO ONE ×2 (13:00→19:00)
[2023-04-04] MEDS ORDERED: 0.9% SODIUM CHLORIDE 5 ML NEB SOLUTION NEB ONE (15:24)
[2023-04-04] MEDS: ALBUTEROL SULFATE 2.5 MG/0.5 ML NEB SOLUTION NEB SCH ×3 (15:28→22:33)
[2023-04-04] MEDS: ALBUTEROL SULFATE HFA 90 MCG/PUFF 8 GM INHALER IH SCH ×2 (17:39→22:56)
[2023-04-04] MEDS: IPRATROPIUM BROMIDE 0.5 MG/2.5 ML NEB SOLUTION NEB SCH (19:10)
[2023-04-04] MEDS: MELATONIN 5 MG TABLET PO SCH (21:09)
[2023-04-04] MEDS: DIVALPROEX SODIUM 500 MG ER TABLET PO SCH (21:09)
[2023-04-04] MEDS: PRAZOSIN HCL 1 MG CAPSULE PO SCH (21:09)
[2023-04-05] VITALS (12 sets, daily range): BP systolic 114–122; BP diastolic 69–72; PULSE 54–75; RESP 18–20; TEMP 97.8–98.2; O2SAT 91–99
[2023-04-05] MEDS: ALBUTEROL SULFATE 2.5 MG/0.5 ML NEB SOLUTION NEB SCH ×6 (02:53→23:20)
[2023-04-05] MEDS: ALBUTEROL SULFATE HFA 90 MCG/PUFF 8 GM INHALER IH SCH ×3 (06:17→17:48)
[2023-04-05 07:39] LABS: ANION GAP 10 mmol/L (8-16); CALCIUM, TOTAL 8.9 mg/dL (8.8-10.5); CARBON DIOXIDE 27 mmol/L (22-29); CHLORIDE 103 mmol/L (98-107); CREATININE 0.71 mg/dL (0.60-1.30); GLOMERULAR FILTR. RATE CALC > 60 mL/min (>60); GLUCOSE,RANDOM 126 mg/dL (70-110); POTASSIUM 4.1 mmol/L (3.5-5.1); SODIUM SERUM 140 mmol/L (136-145)
[2023-04-05 07:46] LABS: CHOL/HDL RATIO 2.3 (4.2-7.3); FREE T4 (FREE THYROXINE) 1.03 ng/dL (0.76-1.46); HEMOGLOBIN A1C 5.4 % (3.8-5.6); THYROID STIMULATING HORMONE 0.46 uIU/mL (0.36-3.74)
[2023-04-05] MEDS: IPRATROPIUM BROMIDE 0.5 MG/2.5 ML NEB SOLUTION NEB SCH ×2 (08:06→19:45)
[2023-04-05] MEDS: FOLIC ACID 1 MG TABLET PO SCH ×2 (09:00→09:15)
[2023-04-05] MEDS: NALTREXONE HCL 50 MG TABLET PO SCH ×2 (09:00→09:15)
[2023-04-05] MEDS: OMEGA-3/DHA/EPA/FISH OIL 1,000 MG CAPSULE PO SCH ×2 (09:00→09:15)
[2023-04-05] MEDS: MULTIVITAMINS WITH MINERALS, THERAPEUTIC TABLET PO SCH ×2 (09:00→09:15)
[2023-04-05] MEDS: THIAMINE 100 MG TABLET PO SCH ×3 (09:00→16:07)
[2023-04-05] MEDS: FLUoxetine HCL 20 MG CAPSULE PO SCH ×2 (09:00→09:15)
[2023-04-05] MEDS ORDERED: 0.9% SODIUM CHLORIDE 5 ML NEB SOLUTION NEB ONE (12:20)
[2023-04-05] MEDS: PRAZOSIN HCL 1 MG CAPSULE PO SCH (20:35)
[2023-04-05] MEDS: DIVALPROEX SODIUM 500 MG ER TABLET PO SCH (20:35)
[2023-04-05] MEDS: MELATONIN 5 MG TABLET PO SCH (20:35)
[2023-04-06] VITALS (11 sets, daily range): BP systolic 99; BP diastolic 55; PULSE 69–77; RESP 18–20; TEMP 98.2; O2SAT 92–100
[2023-04-06] MEDS: ALBUTEROL SULFATE HFA 90 MCG/PUFF 8 GM INHALER IH SCH ×4 (00:10→17:47)
[2023-04-06] MEDS: ALBUTEROL SULFATE 2.5 MG/0.5 ML NEB SOLUTION NEB SCH ×6 (03:00→23:18)
[2023-04-06] MEDS: IPRATROPIUM BROMIDE 0.5 MG/2.5 ML NEB SOLUTION NEB SCH ×2 (07:50→11:39)
[2023-04-06] MEDS: OMEGA-3/DHA/EPA/FISH OIL 1,000 MG CAPSULE PO SCH (09:00)
[2023-04-06] MEDS: THIAMINE 100 MG TABLET PO SCH ×2 (09:00→16:05)
[2023-04-06] MEDS: MULTIVITAMINS WITH MINERALS, THERAPEUTIC TABLET PO SCH (09:00)
[2023-04-06] MEDS: FOLIC ACID 1 MG TABLET PO SCH (09:00)
[2023-04-06] MEDS: FLUoxetine HCL 20 MG CAPSULE PO SCH (09:00)
[2023-04-06] MEDS: NALTREXONE HCL 50 MG TABLET PO SCH (09:00)
[2023-04-06] MEDS: PRAZOSIN HCL 1 MG CAPSULE PO SCH (21:00)
[2023-04-06] MEDS: DIVALPROEX SODIUM 500 MG ER TABLET PO SCH (21:00)
[2023-04-06] MEDS: MELATONIN 5 MG TABLET PO SCH (21:00)
[2023-04-07] VITALS (15 sets, daily range): BP systolic 103–137; BP diastolic 70–74; PULSE 50–73; RESP 17–20; TEMP 97.6–98.1; O2SAT 94–100
[2023-04-07] MEDS: ALBUTEROL SULFATE HFA 90 MCG/PUFF 8 GM INHALER IH SCH ×5 (00:16→23:28)
[2023-04-07] MEDS: ALBUTEROL SULFATE 2.5 MG/0.5 ML NEB SOLUTION NEB SCH ×6 (02:44→22:19)
[2023-04-07] MEDS: IPRATROPIUM BROMIDE 0.5 MG/2.5 ML NEB SOLUTION NEB SCH ×3 (07:59→19:20)
[2023-04-07] MEDS: FLUoxetine HCL 20 MG CAPSULE PO SCH (09:00)
[2023-04-07] MEDS: NALTREXONE HCL 50 MG TABLET PO SCH ×2 (09:00→20:48)
[2023-04-07] MEDS: DIVALPROEX SODIUM 500 MG ER TABLET PO SCH (20:47)
[2023-04-07] MEDS: MELATONIN 5 MG TABLET PO SCH (20:47)
[2023-04-07] MEDS: PRAZOSIN HCL 1 MG CAPSULE PO SCH (20:48)
[2023-04-08] VITALS (9 sets, daily range): BP systolic 122–128; BP diastolic 60–73; PULSE 60–83; RESP 17–18; TEMP 98; O2SAT 94–98
[2023-04-08] MEDS: ALBUTEROL SULFATE 2.5 MG/0.5 ML NEB SOLUTION NEB SCH ×5 (03:17→23:00)
[2023-04-08] MEDS: ALBUTEROL SULFATE HFA 90 MCG/PUFF 8 GM INHALER IH SCH ×3 (06:35→18:06)
[2023-04-08] MEDS: FLUoxetine HCL 20 MG CAPSULE PO SCH (09:41)
[2023-04-08] MEDS: IPRATROPIUM BROMIDE 0.5 MG/2.5 ML NEB SOLUTION NEB SCH ×2 (11:41→19:42)
[2023-04-08] MEDS: MELATONIN 5 MG TABLET PO SCH (20:53)
[2023-04-08] MEDS: NALTREXONE HCL 50 MG TABLET PO SCH (20:53)
[2023-04-08] MEDS: DIVALPROEX SODIUM 500 MG ER TABLET PO SCH (20:53)
[2023-04-08] MEDS: PRAZOSIN HCL 1 MG CAPSULE PO SCH (20:54)
[2023-04-09] VITALS (8 sets, daily range): BP systolic 100–120; BP diastolic 60–64; PULSE 55–79; RESP 16–18; TEMP 97.7–98.7; O2SAT 92–98
[2023-04-09] MEDS: ALBUTEROL SULFATE 2.5 MG/0.5 ML NEB SOLUTION NEB SCH ×5 (03:00→22:43)
[2023-04-09] MEDS: ALBUTEROL SULFATE HFA 90 MCG/PUFF 8 GM INHALER IH SCH ×4 (06:11→17:57)
[2023-04-09] MEDS: IPRATROPIUM BROMIDE 0.5 MG/2.5 ML NEB SOLUTION NEB SCH ×2 (08:18→19:17)
[2023-04-09] MEDS: FLUoxetine HCL 20 MG CAPSULE PO SCH (09:00)
[2023-04-09] MEDS: PRAZOSIN HCL 1 MG CAPSULE PO SCH (20:40)
[2023-04-09] MEDS: MELATONIN 5 MG TABLET PO SCH (20:40)
[2023-04-09] MEDS: DIVALPROEX SODIUM 500 MG ER TABLET PO SCH (20:40)
[2023-04-09] MEDS: NALTREXONE HCL 50 MG TABLET PO SCH (20:56)
[2023-04-09] MEDS ORDERED: 0.9% SODIUM CHLORIDE 5 ML NEB SOLUTION NEB ONE (22:42)
[2023-04-10] VITALS (12 sets, daily range): BP systolic 100–113; BP diastolic 62–63; PULSE 59–92; RESP 16–20; TEMP 97.5–97.9; O2SAT 59–99
[2023-04-10] MEDS: ALBUTEROL SULFATE HFA 90 MCG/PUFF 8 GM INHALER IH SCH ×4 (00:04→18:23)
[2023-04-10] MEDS: ALBUTEROL SULFATE 2.5 MG/0.5 ML NEB SOLUTION NEB SCH ×6 (03:00→23:04)
[2023-04-10] MEDS: FLUoxetine HCL 20 MG CAPSULE PO SCH (08:45)
[2023-04-10] MEDS: IPRATROPIUM BROMIDE 0.5 MG/2.5 ML NEB SOLUTION NEB SCH ×2 (11:41→19:13)
[2023-04-10] MEDS ORDERED: 0.9% SODIUM CHLORIDE 5 ML NEB SOLUTION NEB ONE (15:16)
[2023-04-10] MEDS ORDERED: PRAZ1 PO (17:30)
[2023-04-10] MEDS ORDERED: FLUO20CA36 PO (17:30)
[2023-04-10] MEDS ORDERED: MELA5TAB40 PO (17:30)
[2023-04-10] MEDS ORDERED: NALT50TA PO (17:30)
[2023-04-10] MEDS ORDERED: OMEG-135 PO (17:30)
[2023-04-10] MEDS ORDERED: DIVA500T69 PO (17:30)
[2023-04-10] MEDS: PRAZOSIN HCL 1 MG CAPSULE PO SCH (20:40)
[2023-04-10] MEDS: MELATONIN 5 MG TABLET PO SCH (20:40)
[2023-04-10] MEDS: NALTREXONE HCL 50 MG TABLET PO SCH (20:40)
[2023-04-10] MEDS: DIVALPROEX SODIUM 500 MG ER TABLET PO SCH (20:40)
[2023-04-11] VITALS (11 sets, daily range): BP systolic 108; BP diastolic 61; PULSE 59–72; RESP 18–20; TEMP 97.7; O2SAT 91–99
[2023-04-11] MEDS: ALBUTEROL SULFATE HFA 90 MCG/PUFF 8 GM INHALER IH SCH ×4 (00:16→18:50)
[2023-04-11] MEDS: ALBUTEROL SULFATE 2.5 MG/0.5 ML NEB SOLUTION NEB SCH ×7 (03:00→22:48)
[2023-04-11] MEDS ORDERED: 0.9% SODIUM CHLORIDE 5 ML NEB SOLUTION NEB ONE ×2 (07:33→14:58)
[2023-04-11] MEDS: FLUoxetine HCL 20 MG CAPSULE PO SCH (09:00)
[2023-04-11] MEDS: IPRATROPIUM BROMIDE 0.5 MG/2.5 ML NEB SOLUTION NEB SCH ×2 (10:49→19:04)
[2023-04-11] MEDS: PRAZOSIN HCL 1 MG CAPSULE PO SCH (21:19)
[2023-04-11] MEDS: DIVALPROEX SODIUM 500 MG ER TABLET PO SCH (21:19)
[2023-04-11] MEDS: MELATONIN 5 MG TABLET PO SCH (21:20)
[2023-04-11] MEDS: NALTREXONE HCL 50 MG TABLET PO SCH (21:20)
[2023-04-12] VITALS (15 sets, daily range): BP systolic 111–140; BP diastolic 65–71; PULSE 53–71; RESP 18–20; TEMP 97.7–97.8; O2SAT 92–100
[2023-04-12] MEDS: ALBUTEROL SULFATE HFA 90 MCG/PUFF 8 GM INHALER IH SCH ×4 (00:04→17:59)
[2023-04-12] MEDS: ALBUTEROL SULFATE 2.5 MG/0.5 ML NEB SOLUTION NEB SCH ×7 (03:20→22:51)
[2023-04-12] MEDS ORDERED: 0.9% SODIUM CHLORIDE 5 ML NEB SOLUTION NEB ONE ×2 (08:03→15:52)
[2023-04-12] MEDS: FLUoxetine HCL 20 MG CAPSULE PO SCH (09:00)
[2023-04-12] MEDS: IPRATROPIUM BROMIDE 0.5 MG/2.5 ML NEB SOLUTION NEB SCH ×2 (11:21→19:27)
[2023-04-12] MEDS: MELATONIN 5 MG TABLET PO SCH (20:10)
[2023-04-12] MEDS: NALTREXONE HCL 50 MG TABLET PO SCH (20:10)
[2023-04-12] MEDS: PRAZOSIN HCL 1 MG CAPSULE PO SCH (20:10)
[2023-04-12] MEDS: DIVALPROEX SODIUM 500 MG ER TABLET PO SCH (21:00)
[2023-04-13] VITALS (11 sets, daily range): PULSE 68–72; RESP 18; TEMP 97.9; O2SAT 95–100
[2023-04-13] MEDS: ALBUTEROL SULFATE HFA 90 MCG/PUFF 8 GM INHALER IH SCH ×5 (00:10→23:01)
[2023-04-13] MEDS: ALBUTEROL SULFATE 2.5 MG/0.5 ML NEB SOLUTION NEB SCH ×7 (02:21→23:58)
[2023-04-13] MEDS: FLUoxetine HCL 20 MG CAPSULE PO SCH (09:00)
[2023-04-13] MEDS: IPRATROPIUM BROMIDE 0.5 MG/2.5 ML NEB SOLUTION NEB SCH ×2 (09:00→19:03)
[2023-04-13] MEDS: MELATONIN 5 MG TABLET PO SCH (20:33)
[2023-04-13] MEDS: DIVALPROEX SODIUM 500 MG ER TABLET PO SCH (21:00)
[2023-04-13] MEDS: PRAZOSIN HCL 1 MG CAPSULE PO SCH (21:00)
[2023-04-13] MEDS: NALTREXONE HCL 50 MG TABLET PO SCH (21:00)
[2023-04-14] VITALS (7 sets, daily range): PULSE 70–79; RESP 18; O2SAT 98–100
[2023-04-14] MEDS: ALBUTEROL SULFATE 2.5 MG/0.5 ML NEB SOLUTION NEB SCH ×4 (03:38→14:19)
[2023-04-14] MEDS: ALBUTEROL SULFATE HFA 90 MCG/PUFF 8 GM INHALER IH SCH ×2 (06:05→11:55)
[2023-04-14] MEDS: IPRATROPIUM BROMIDE 0.5 MG/2.5 ML NEB SOLUTION NEB SCH (07:53)
[2023-04-14] MEDS: FLUoxetine HCL 20 MG CAPSULE PO SCH (09:22)
[2023-04-14] MEDS ORDERED: ALBU18HF12 IH (10:57)
== END 2023-04-14 15:20 | disposition home or self-care (01) | DRG 885 ==
LOC: EMS 20:33 → 3EI 04-04 01:01
PROVIDERS: ADMIT Psychiatry & Neurology Psychiatry; ATTEND Psychiatry & Neurology Psychiatry
DX: F33.3 Major depressive disorder, recurrent, severe with psychotic symptoms (principal); J44.1 Chronic obstructive pulmonary disease with (acute) exacerbation; R45.851 Suicidal ideations; F43.12 Post-traumatic stress disorder, chronic; Z20.822 Contact with and (suspected) exposure to COVID-19; F10.20 Alcohol dependence, uncomplicated; F17.210 Nicotine dependence, cigarettes, uncomplicated; Y90.2 Blood alcohol level of 40-59 mg/100 ml; M10.9 Gout, unspecified; Z55.9 Problems related to education and literacy, unspecified; Z59.9 Problem related to housing and economic circumstances, unspecified; Z63.9 Problem related to primary support group, unspecified; Z65.3 Problems related to other legal circumstances; Z91.148 Patient's other noncompliance with medication regimen for other reason; Z91.199 Patient's noncompliance with other medical treatment and regimen due to unspecified reason; Z91.018 Allergy to other foods; Z79.899 Other long term (current) drug therapy
CPT/HCPCS: 71045; 80048; 80053; 80061; 80164; 83036; 83880; 84439; 84443; 84484; 85025; 86592; 93005; 94640; 99291; G0480; J2930; J3535; Q9967; 36415-L1; 36415-TC; J7613

== ENCOUNTER 2023-04-30 12:51 | Emergency (ER) | payer OTHER ==
[~2023-04-30 12:51] MED LIST changes: -AZIT-103 PO; -BENZ-227 PO; +DIVA500T69 PO; +FLUO20CA36 PO; -FLUT1BLS10 IH; +MELA5TAB40 PO; +NALT50TA PO; +OMEG-135 PO; +PRAZ1 PO; -PRED-554 PO
[2023-04-30 13:29] LABS: BASOPHILS % (AUTO) 0.4 % (0.0-2.0); HEMATOCRIT 48.6 % (41-53); HEMOGLOBIN 16.2 g/dL (13.5-17.5); LYMPHOCYTES # (AUTO) 2.2 K/uL (1.0-4.8); MEAN CORPUSCULAR HEMOGLOBIN 30.6 pg (26.0-34.0); MEAN CORPUSCULAR HGB CONC 33.2 G/dL (31.0-37.0); MEAN CORPUSCULAR VOLUME 92 fL (80-100); MONOCYTES # (AUTO) 0.8 K/uL (0.1-1.0); MONOCYTES % (AUTO) 10.8 % (2.0-9.0); NEUTROPHILS # (AUTO) 3.7 K/uL (1.8-7.7); NEUTROPHILS % (AUTO) 52.8 % (40.0-70.0); PLATELET COUNT (AUTO) 201 K/uL (150-450); RED BLOOD CELL COUNT(AUTO) 5.28 MIL/uL (4.50-5.90)
[2023-04-30 13:43] LABS: ANION GAP 5 mmol/L (8-16); CALCIUM, TOTAL 8.8 mg/dL (8.8-10.5); CARBON DIOXIDE 33 mmol/L (22-29); CHLORIDE 99 mmol/L (98-107); CREATININE 0.52 mg/dL (0.60-1.30); GLOMERULAR FILTR. RATE CALC > 60 mL/min (>60); GLUCOSE,RANDOM 83 mg/dL (70-110); POTASSIUM 3.5 mmol/L (3.5-5.1); SODIUM SERUM 137 mmol/L (136-145)
[2023-04-30 13:50] LABS: ALANINE AMINOTRANSFERASE 85 U/L (12-78); ALBUMIN 3.9 g/dL (3.4-5.0); ALKALINE PHOSPHATASE 170 U/L (46-116); ASPARTATE AMINOTRANSFERASE 98 U/L (15-37); TOTAL PROTEIN, SERUM 7.8 g/dL (6.4-8.2)
[2023-04-30 14:05] LABS: B-TYPE NATRIURETIC PEPTIDE 78 pg/mL (0-100)
[2023-04-30] MEDS ORDERED: ALBUTEROL SULFATE 2.5 MG/0.5 ML NEB SOLUTION NEB ONE (18:30)
[2023-04-30] MEDS ORDERED: CefTRIAXone 1 GM/DEXTROSE 50 ML IV ONE (18:30)
[2023-04-30] MEDS ORDERED: AZITHROMYCIN 500 MG/NS 250 ML IV ONE (18:30)
[2023-04-30] MEDS ORDERED: IPRATROPIUM BROMIDE 0.5 MG/2.5 ML NEB SOLUTION NEB ONE (18:30)
[2023-04-30 18:42] VITALS: PULSE 74; RESP 22; O2SAT 93
[2023-04-30 18:44] VITALS: PULSE 74; RESP 23; O2SAT 93
[2023-04-30] MEDS ORDERED: PRED-554 PO (19:39)
[2023-04-30] MEDS ORDERED: GUAIFDM PO (19:39)
[2023-04-30] MEDS ORDERED: DOXY-354 PO (19:39)
[2023-04-30] MEDS ORDERED: ONDANSETRON HCL 4 MG/2 ML VIAL IVP ONE (20:00)
[2023-04-30 20:44] VITALS: BP 100/60; PULSE 75; RESP 20
== END 2023-04-30 21:32 | disposition home or self-care (01) ==
LOC: EMS 12:51
DX: J44.1 Chronic obstructive pulmonary disease with (acute) exacerbation (principal); F17.210 Nicotine dependence, cigarettes, uncomplicated; Z98.890 Other specified postprocedural states; Z91.018 Allergy to other foods
CPT/HCPCS: 99285; 96365; 71045; 96366; 96375; 80053; 83880; 84484; 85025; 94640; 93005; 96368; J0456; J0696; J2405; J7613

== ENCOUNTER 2024-05-05 16:05 | Inpatient (IN) | payer OTHER ==
[~2024-05-05] VITALS: Ht 177.8 cm; Wt 68.2 kg
[~2024-05-05 16:05] MED LIST changes: +DOXY-354 PO; +FLUO-418 PO; -FLUO20CA36 PO; +GUAIFDM PO; -NALT50TA PO; +NALT50TA6 PO; +PRED-554 PO
[2024-05-05 16:55] LABS: BASOPHILS % (AUTO) 0.5 % (0.0-2.0); EOSINOPHILS % (AUTO) 0.7 % (1.0-6.0); HEMATOCRIT 37.3 % (41-53); HEMOGLOBIN 11.7 g/dL (13.5-17.5); LYMPHOCYTES # (AUTO) 1.2 K/uL (1.0-4.8); LYMPHOCYTES % (AUTO) 12.3 % (22.0-44.0); MEAN CORPUSCULAR HEMOGLOBIN 24.7 pg (26.0-34.0); MEAN CORPUSCULAR HGB CONC 31.5 G/dL (31.0-37.0); MEAN CORPUSCULAR VOLUME 79 fL (80-100); MONOCYTES # (AUTO) 1.6 K/uL (0.1-1.0); MONOCYTES % (AUTO) 15.6 % (2.0-9.0); NEUTROPHILS # (AUTO) 7.1 K/uL (1.8-7.7); NEUTROPHILS % (AUTO) 70.9 % (40.0-70.0); PLATELET COUNT (AUTO) 538 K/uL (150-450); RED BLOOD CELL COUNT(AUTO) 4.75 MIL/uL (4.50-5.90); RED CELL DISTRIBUTION WIDTH 18.3 % (11.5-14.5)
[2024-05-05 17:14] LABS: ANION GAP 11 mmol/L (8-16); CARBON DIOXIDE 28 mmol/L (22-29); CHLORIDE 101 mmol/L (98-107); CREATININE 2.17 mg/dL (0.60-1.30); GLOMERULAR FILTR. RATE CALC 30 mL/min (>60); GLUCOSE,RANDOM 135 mg/dL (70-110); POTASSIUM 4.3 mmol/L (3.5-5.1); SODIUM SERUM 140 mmol/L (136-145); UREA NITROGEN, BLOOD 38 mg/dL (7-18)
[2024-05-05 17:40] LABS: ALCOHOL, BLOOD (SERUM) < 3 mg/dL (0-10)
[2024-05-05] MEDS ORDERED: IPRATROPIUM BROMIDE 0.5 MG/2.5 ML NEB SOLUTION NEB PRN (19:45)
[2024-05-05] MEDS ORDERED: ACETAMINOPHEN 325 MG TABLET PO PRN (19:45)
[2024-05-05] MEDS ORDERED: ALBUTEROL SULFATE 2.5 MG/0.5 ML NEB SOLUTION NEB PRN (19:45)
[2024-05-05] MEDS: SODIUM CHLORIDE 0.9% 250 ML IV ONE (20:00)
[2024-05-05 22:36] LABS: PH,URINE DRUG SCREEN 5.5 (5.0-8.0)
[2024-05-05 22:43] LABS: ALCOHOL, URINE DRUG SCREEN NEGATIVE (NEGATIVE); AMPHET/METH SCREEN,URINE POSITIVE (NEGATIVE); BARBITURATE SCREEN, URINE NEGATIVE (NEGATIVE); BENZODIAZEPINES SCREEN,URINE NEGATIVE (NEGATIVE); CANNABINOID SCREEN,URINE NEGATIVE (NEGATIVE); COCAINE SCREEN,URINE NEGATIVE (NEGATIVE); METHADONE SCREEN, URINE NEGATIVE (NEGATIVE); OPIATE SCREEN,URINE NEGATIVE (NEGATIVE); PHENCYCLIDINE SCREEN,URINE NEGATIVE (NEGATIVE)
[2024-05-05 23:03] LABS: CREATININE,URINE RANDOM 272.4 mg/dL (30.0-125.0)
[2024-05-06 00:35] VITALS: BP 108/66; PULSE 56; RESP 18; TEMP 97.7; O2SAT 99
[2024-05-06] MEDS: HEPARIN SODIUM,PORCINE 5,000 UNITS/ML VIAL SQ SCH (01:12)
[2024-05-06 04:20] VITALS: BP 130/72; PULSE 60; RESP 18; TEMP 97.8; O2SAT 97
[2024-05-06 07:22] LABS: BASOPHILS % (AUTO) 0.4 % (0.0-2.0); EOSINOPHILS % (AUTO) 2.6 % (1.0-6.0); HEMATOCRIT 33.9 % (41-53); HEMOGLOBIN 10.7 g/dL (13.5-17.5); LYMPHOCYTES % (AUTO) 23.2 % (22.0-44.0); MEAN CORPUSCULAR HEMOGLOBIN 24.8 pg (26.0-34.0); MEAN CORPUSCULAR HGB CONC 31.7 G/dL (31.0-37.0); MEAN CORPUSCULAR VOLUME 78 fL (80-100); MONOCYTES # (AUTO) 1.4 K/uL (0.1-1.0); MONOCYTES % (AUTO) 15.7 % (2.0-9.0); NEUTROPHILS % (AUTO) 58.1 % (40.0-70.0); PLATELET COUNT (AUTO) 410 K/uL (150-450); RED BLOOD CELL COUNT(AUTO) 4.33 MIL/uL (4.50-5.90); WHITE BLOOD COUNT (AUTO) 8.7 K/uL (4.5-11.0)
[2024-05-06 07:30] LABS: CALCIUM, TOTAL 8.8 mg/dL (8.8-10.5); CREATININE 1.2 mg/dL (0.60-1.30); MAGNESIUM 2.2 mg/dL (1.80-2.40); POTASSIUM 3.7 mmol/L (3.5-5.1)
[2024-05-06] MEDS ORDERED: IPRATROPIUM BROMIDE 0.5 MG/2.5 ML NEB SOLUTION NEB PRN (16:45)
[2024-05-06] MEDS ORDERED: ALBUTEROL SULFATE 2.5 MG/0.5 ML NEB SOLUTION NEB PRN (16:45)
[2024-05-06] MEDS: SODIUM CHLORIDE 0.9% 1,000 ML IV SCH (16:51)
[2024-05-06 19:51] VITALS: BP 110/60; PULSE 64; RESP 20; TEMP 97.5; O2SAT 100
[2024-05-06] MEDS: PRAZOSIN HCL 2 MG CAPSULE PO SCH (20:16)
[2024-05-07 03:06] LABS: HEPATITIS C AB (EIA) Reactive (Non Reactive)
[2024-05-07 06:27] VITALS: BP 122/69; PULSE 65; RESP 20; TEMP 97.8; O2SAT 96
[2024-05-07 08:23] LABS: BASOPHILS % (AUTO) 0.4 % (0.0-2.0); EOSINOPHILS % (AUTO) 3.8 % (1.0-6.0); HEMATOCRIT 31.2 % (41-53); HEMOGLOBIN 9.8 g/dL (13.5-17.5); MEAN CORPUSCULAR HGB CONC 31.2 G/dL (31.0-37.0); MEAN CORPUSCULAR VOLUME 80 fL (80-100); MONOCYTES # (AUTO) 1.2 K/uL (0.1-1.0); MONOCYTES % (AUTO) 18.3 % (2.0-9.0); NEUTROPHILS # (AUTO) 3.1 K/uL (1.8-7.7); NEUTROPHILS % (AUTO) 47.5 % (40.0-70.0); PLATELET COUNT (AUTO) 307 K/uL (150-450); RED BLOOD CELL COUNT(AUTO) 3.89 MIL/uL (4.50-5.90); RED CELL DISTRIBUTION WIDTH 18.4 % (11.5-14.5); WHITE BLOOD COUNT (AUTO) 6.6 K/uL (4.5-11.0)
[2024-05-07 08:32] LABS: ALANINE AMINOTRANSFERASE 56 U/L (12-78); ALBUMIN 2.8 g/dL (3.4-5.0); ALKALINE PHOSPHATASE 97 U/L (46-116); ANION GAP 3 mmol/L (8-16); ASPARTATE AMINOTRANSFERASE 44 U/L (15-37); BILIRUBIN,TOTAL 0.3 mg/dL (0.1-1.0); CALCIUM, TOTAL 8.4 mg/dL (8.8-10.5); CARBON DIOXIDE 33 mmol/L (22-29); CHLORIDE 106 mmol/L (98-107); CREATININE 0.91 mg/dL (0.60-1.30); GLOMERULAR FILTR. RATE CALC > 60 mL/min (>60); GLUCOSE,RANDOM 95 mg/dL (70-110); POTASSIUM 4.5 mmol/L (3.5-5.1); SODIUM SERUM 142 mmol/L (136-145); TOTAL PROTEIN, SERUM 6.2 g/dL (6.4-8.2); UREA NITROGEN, BLOOD 28 mg/dL (7-18)
[2024-05-07 17:31] VITALS: BP 115/70; PULSE 69; RESP 18; TEMP 98; O2SAT 93
[2024-05-07 20:03] VITALS: BP 109/65; PULSE 65; RESP 20; TEMP 97.7; O2SAT 100
[2024-05-08 05:06] VITALS: BP 115/62; PULSE 66; RESP 20; TEMP 98.2; O2SAT 95
[2024-05-08 08:13] VITALS: BP 118/64; PULSE 72; RESP 20; TEMP 98.4; O2SAT 96
[2024-05-09 12:07] LABS: HEPATITIS C RT-PCR,QNT 3190000 IU/mL
== END 2024-05-08 18:18 | DRG 682 ==
LOC: EMS 16:05 → EDH 19:36 → 4E 05-06 00:35
PROVIDERS: ADMIT Internal Medicine; ATTEND Internal Medicine
PROC: GZ56ZZZ Individual Psychotherapy, Supportive (ICD-10-PCS; principal; 2024-05-06)
DX: N17.9 Acute kidney failure, unspecified (principal); E43 Unspecified severe protein-calorie malnutrition; R45.851 Suicidal ideations; F33.2 Major depressive disorder, recurrent severe without psychotic features; J44.9 Chronic obstructive pulmonary disease, unspecified; Z99.81 Dependence on supplemental oxygen; D64.9 Anemia, unspecified; F17.200 Nicotine dependence, unspecified, uncomplicated; F43.10 Post-traumatic stress disorder, unspecified; I10 Essential (primary) hypertension; M10.9 Gout, unspecified
CPT/HCPCS: 71045; 80048; 80053; 80307; 82271; 82570; 83540; 83550; 83735; 84300; 85025; 86803; 87340; 87522; 99285; G0378; G0480; J1644; J7030; J7050; 36415-L1; 36415-TC